=== PATIENT | female | born 2000 | race Caucasian/White ===

== ENCOUNTER 2022-10-25 18:41 | Emergency (ER) | payer SELFPAY ==
[2022-10-25 18:43] VITALS: BP 113/69; PULSE 83; RESP 18; TEMP 35.9; O2SAT 98; BMI 35.6
== END 2022-10-25 20:45 | disposition left against medical advice (07) ==
LOC: ED 21:00
DX: R04.0 Epistaxis (principal); R05.9 Cough, unspecified; Z53.21 Procedure and treatment not carried out due to patient leaving prior to being seen by health care provider

== ENCOUNTER 2022-10-27 11:01 | Emergency (ER) | payer OTHER, SELFPAY ==
[2022-10-27 11:02] VITALS: BP 125/78; PULSE 82; RESP 16; TEMP 36.6; O2SAT 99; BMI 40.4
--- NOTE | 2022-10-27 11:17 | RAD_ITS ---
STUDY: X-RAY CHEST REASON FOR EXAM: Female, 22 years old. cough TECHNIQUE: PA and lateral views of the chest. COMPARISON: None. FINDINGS: The lungs are clear and expanded. There is no demonstrated pleural abnormality. Normal size heart. Normal mediastinum and fe. Normal visualized pulmonary arteries. Normal visualized aortic arch and descending thoracic aorta. Normal visualized thoracic spine. Normal visualized ribs, clavicles, and shoulders. There is no demonstrated abnormality of the visualized soft tissue structures of the upper abdomen. RAD/Chest PA and Lateral IMPRESSION: Normal x-ray examination of the chest. Electronically Signed: Yoandy Mcwilliams MD at 12:09 EST ,
--- NOTE | 2022-10-27 11:20 | EDS_ITS ---
HPI <KOFI Chanel - Last Filed: 10/27/22 12:22> History of Present Illness Chief Complaint: Cold Sx Narrative Narrative: 29-year-old female presents with 3 months of intermittent nosebleeds and productive cough. 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 She had not been wearing a mask but is in the process of being fitted for respirator. She states her nose is dry and it bleeds almost every day. It happened this morning from the left nostril but stopped with pressure. She is also coughing and bringing up phlegm and sometime s coughs so much she vomits. No chest pain or shortness of breath. She had started wheezing occasionally and was given an inhaler about a month ago and it helped but she is running out. She is concerned she may need antibiotics. PFSH <KOFI Chanel - Last Filed: 10/27/22 12:22> [facility] Medical History no medical history Home Medications Ventolin HFA 90 mcg/actuation aerosol inhaler (albuterol sulfate) 1 - 2 puff inhalation Q4H PRN PRN Wheezing 30 days #8 grams 10/27/22 [Rx Last Taken Unknown] Allergy/AdvReac Type Severity Reaction Status Date / Time diphenhydramine Allergy Anaphylaxis Verified 10/27/22 11:04 [From Doretha] Surgical History no surgical history Social History Smoking Status: Never smoker ROS <KOFI Chanel - Last Filed: 10/27/22 12:22> ROS ED ROS Narrative Constitutional: Negative for fever, chills, malaise. ENT: Negative for sore throat, ear pain. CVS: Negative for palpitations, chest pain, syncope. Respiratory: Positive for cough. Negative for shortness of breath, orthopnea. GI: Negative for abdominal pain, nausea, vomiting, diarrhea. : Negative for dysuria. Neuro: Negative for headache. Skin: Negative for rash. Musc: Negative for joint pain, swelling, trauma. Heme: Negative for easy bruising, bleeding, lymphadenopathy. EXAM <KOFI Chanel Last Filed: 10/27/22 12:22> Physical Exam Narrative Exam Narrative: CONST: Patient sitting in no acute distress. EYES: Normal inspection. ENT: Normal inspection, moist mucous membranes normal oropharynx, nares clear with no evidence of bleeding. NECK: Normal inspection. No stridor. RESP: No respiratory distress, CTAB. Speaking full sentences, no retractions or accessory muscle use. CVS: Regular rate and rhythm, no murmur, no gallop. SKIN: Color normal, no rash, warm, dry, intact. EXTREMITIES: Normal appearance, no pedal edema. NEURO: Oriented x4. PSYCH: Normal affect. Const Vital Signs: 10/27/22 11:02 10/27/22 11:25 Temperature 97.8 F Temperature Source Temporal Pulse Rate 82 Respiratory Rate 16 Respiratory Effort Normal Respiratory Depth Normal Respiratory Pattern Normal Blood Pressure 125/78 H Blood Pressure Mean 93 Pulse Ox 99 Oxygen Delivery Method Room Air Room Air <Dr. Reyna Rizzo DO - Last Filed: 10/27/22 15:34> Physical Exam Const Vital Signs: 10/27/22 11:02 10/27/22 11:25 Temperature 97.8 F Temperature Source Temporal Pulse Rate 82 Respiratory Rate 16 Respiratory Effort Normal Respiratory Depth Normal Respiratory Pattern Normal Blood Pressure 125/78 H Blood Pressure Mean 93 Pulse Ox 99 Oxygen Delivery Method Room Air Room Air MDM <KOFI Chanel - Last Filed: 10/27/22 12:22> [facility] Narrative Medical decision making narrative: Patient has had a runny nose, intermittent nosebleeds and productive cough x3 months after starting a new job where she was exposed to mold and cleans up water and fire sites. She appears well and nontoxic with normal vital signs. Nares are clear with no signs of bleeding and she has a normal posterior oropha rynx. Heart is regular and lungs are clear to auscultation. With 3 months of constant chest x-ray was obtained to rule out pneumonia is negative. She likely has epistaxis from her congestion and dry nasal passages and I recommended using nasal saline spray and a humidifier. She has no other bleeding diathesis so I do not think a CBC is indicated. She most likely has pneumonitis and since an i nhaler helped her in the past I refilled albuterol. I do not think antibiotics are indicated. I provided referrals for primary care and information security and she was given return precautions and discharged in stable condition. Differential: URI, pneumonia, pneumonitis Test considered but not ordered: She has had intermittent nosebleeds but no bleeding from her gums, no blood in vomit, stool or urine and no bruising so I do not think she needs an emergent CBC. Radiography Diagnostic Testing: Clinical Impression(s) from Imaging Studies Chest X-Ray 10/27/22 11:17 IMPRESSION: Normal x-ray examination of the chest. Electronically Signed: Yoandy Mcwilliams MD at 12:09 EST , <Dr. Reyna Rizzo, DO - Last Filed: 10/27/22 15:34> [facility]DM Radiography Diagnostic Testing: Clinical Impression(s) from Imaging Studies Chest X-Ray 10/27/22 11:17 IMPRESSION: Normal x-ray examination of the chest. Electronically Signed: Yoandy Mcwilliams MD at 12:09 EST , Treatment and Re-Evaluation :: Patient evaluated independently and in conjunction with physician teacher's assistant. Agree with note above unless documented otherwise. I was personally present or immediately available for all clinically relevant procedures and performed my own physical exam and review of systems. Patient presents for 3 months of cough as well as intermittent epistaxis. She notes she is actually having a better day today as far as her symptoms but because of the longevity of her symptoms and the fact that she is not getting better she came in. She denies any fever. She denies any blood in her mucus. She denies any prior history of asthma or reactive airway. She notes she previously had been prescribed albuterol inhaler which she did find helpful. 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 She is currently in the process of getting evaluated for respirator. She has not followed up with her primary care doctor pulmonology because she is on-call 17/03 so it is hard for her to make an appointment. Patient has a benign exam. She is clear breath sounds. She is no conversational dyspnea. She is PE RC negative and I do not suspect a pulmonary emboli. Chest x-ray interpreted by myself as well as radiology does not show any acute process including pneumonia or pneumothorax. Patient not having any wheezing and has clear breath sounds and normal vital signs do not think she requires any antibiotics or steroids. She will be given a prescription for another inhaler. She is given referral for local pulmonology as she might benefit from pulmonary function test. She is encouraged to follow-up with her primary care doctor. She verbalizes given understand this plan. Patient does not have signs of any epistaxis at this time no emergent intervention is indicated. She is counseled on using saline rinses for her nose. Discharge Plan Triage Chief Complaint: Cold Sx ED Midlevel Provider: Theodora Chaidez ED Provider: Reyna Rizzo Dx/Rx/DC Orders Clinical Impression: Epistaxis, Chronic cough, Pneumonitis Instructions: ED Cough Chronic Uncertain Cause Adult Prescriptions: New albuterol sulfate [Ventolin HFA] 90 mcg/actuation HFA aerosol inhaler 1 - 2 puff inhalation Q4H PRN PRN (Reason: Wheezing) 30 Days Qty: 8 0RF Rx Instructions: with spacer Primary Care Provider: Care Physician,No Primary Referrals: [facility] Doctor,Out of [Non-Staff] - Activity Restrictions/Additional Instructions: Use nasal saline sprays 2-3 times a day and a humidifier to try and keep her nasal passages moist to prevent nosebleeds. If you start having bleeding from any other areas like her gums or in your stool or urine or have easy bruising see your primary care doctor or return here to have blood work done. I do not think this needs done emergently today. Regarding your cough I refilled an inhaler and recommend you see both PCP and information security. Wear a mask or respirator at work. Disposition Disposition: Home, Self Care Discharge Date/Time: 10/27/22 12:23
[2022-10-27 11:25] VITALS: O2SAT 98
== END 2022-10-27 12:23 | disposition home or self-care (01) ==
PROVIDERS: Emergency Provider Emergency Medicine; Visit Provider Emergency Medicine
DX: J18.9 Pneumonia, unspecified organism (principal); R04.0 Epistaxis; R05.3 Chronic cough
CPT/HCPCS: 71046; 99282